=== PATIENT | female | born 1970 | race Caucasian/White ===

== ENCOUNTER 2016-08-16 19:48 | Emergency (ER) | payer BC, OTHER ==
[~2016-08-16 19:48] MED LIST: COGE1INJ IM; COLA100C3 PO; ERGO1CAP10 PO; ERYT1SUS5 PO; LITH300C2 PO; LITH600C PO; OXYC1TAB63 PO; PANT40TA3 PO; PRAZ1CAP PO; PRAZ5CAP PO; PROM1SUP7 RECTAL; TRAM50TA PO; VIST50CA PO; ZOFR4TAB PO; ZYPR20TA PO
[2016-08-16 21:05] LABS: BLOOD, URINE NEG (NEG); COMMENT (UR) CULT NOT INDICATED; CULTURE IF INDICATED CULT NOT INDICATED; GLUCOSE,URINE NEG (NEG); KETONE, URINE NEG (NEG); NITRITE,URINE NEG (NEG); SQUAMOUS EPITHELIAL CELL URINE <1 /hpf (0-5); URINE COLOR COLORLESS (YELLW/STRAW)
[2016-08-16 21:09] LABS: AMPHETAMINE, URINE NEG (NEG); BARBITURATES, URINE NEG (NEG); COCAINE, URINE NEG (NEG)
[2016-08-16] MEDS ORDERED: LORazepam 1 MG TAB PO ONE (21:30)
[2016-08-16] MEDS ORDERED: SERTRALINE HCL 100 MG TAB PO ONE (21:30)
[2016-08-16] MEDS ORDERED: QUEtiapine FUMARATE 100 MG TAB PO ONE (21:30)
[2016-08-16] MEDS ORDERED: PRAZ2CAP PO (21:38)
[2016-08-16] MEDS ORDERED: AMBI10TA PO (21:38)
[2016-08-16] MEDS ORDERED: LORA1TAB12 PO (21:38)
[2016-08-16] MEDS ORDERED: ZOLO100T PO (21:38)
[2016-08-16] MEDS ORDERED: SERO100T PO (21:38)
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
[2016-08-16] MEDS ORDERED: PRAZOSIN HCL 2 MG CAP PO ONE (21:45)
[2016-08-16 21:46] LABS: AUTOMATED NEUTROPHIL # 3.4 TH/MM3 (1.8-7.7); BASOPHIL # 0.1 TH/MM3 (0-0.2); BASOPHIL % 0.6 % (0.0-2.0); EOSINOPHIL # 0.2 TH/MM3 (0-0.4); EOSINOPHIL % 2.5 % (0.0-4.0); HEMO FLAGS DIFF FINAL; LYMPH % 53.1 % (9.0-44.0); LYMPHOCYTE # 4.8 TH/MM3 (1.0-4.8); MEAN CELL VOLUME 88.6 FL (80.0-100.0); MEAN CORPUSCULAR HEMOGLOBIN 29.8 PG (27.0-34.0); MEAN CORPUSCULAR HGB CONC 33.6 % (32.0-36.0); MONO % 6.3 % (0.0-8.0); NEUT % 37.5 % (16.0-70.0); PLATELET COUNT 263 TH/MM3 (150-450); RED BLOOD COUNT 4.63 MIL/MM3 (4.00-5.30); RED CELL DISTRIBUTION WIDTH 16.4 % (11.6-17.2); WHITE BLOOD COUNT 9.1 TH/MM3 (4.0-11.0)
[2016-08-16 22:03] LABS: ANION GAP 12 MEQ/L (5-15)
[2016-08-16 22:07] LABS: ALKALINE PHOSPHATASE 55 U/L (45-117); ALT (GPT) 17 U/L (10-53); AST (GOT) 13 U/L (15-37); BICARBONATE 20.4 MEQ/L (21.0-32.0); BLOOD UREA NITROGEN 8 MG/DL (7-18); CHLORIDE 108 MEQ/L (98-107); GLOMERULAR FILTRATION RATE 75 ML/MIN (>89); POTASSIUM 3.9 MEQ/L (3.5-5.1); SODIUM (NA) 140 MEQ/L (136-145); TOTAL BILIRUBIN ADULT 0.6 MG/DL (0.2-1.0)
[2016-08-16 22:11] LABS: ACETAMINOPHEN LESS THAN 2.0 MCG/ML (10.0-30.0)
[2016-08-16 22:17] VITALS: BP 121/55; PULSE 94; RESP 18; O2SAT 99
[2016-08-17 02:24] VITALS: BP 101/51; PULSE 116; RESP 18; O2SAT 96
[2016-08-17 06:43] VITALS: BP 101/54; PULSE 106; RESP 18; O2SAT 96
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
== END 2016-08-17 09:55 | disposition home or self-care (01) ==
LOC: NEDAMB 19:48 → NEPJ 08-17 09:55
DX: F32.9 Major depressive disorder, single episode, unspecified (principal); F10.129 Alcohol abuse with intoxication, unspecified; F43.10 Post-traumatic stress disorder, unspecified; F41.9 Anxiety disorder, unspecified; J44.9 Chronic obstructive pulmonary disease, unspecified; K21.9 Gastro-esophageal reflux disease without esophagitis
CPT/HCPCS: 80053; 80307; 81001; 84703; 85025; 99283

== ENCOUNTER 2016-09-10 20:16 | Emergency (ER) | payer BC, OTHER ==
[~2016-09-10] VITALS: Ht 162.6 cm; Wt 68.2 kg
[~2016-09-10 20:16] MED LIST changes: +AMBI10TA PO; -COGE1INJ IM; -COLA100C3 PO; -ERGO1CAP10 PO; -LITH300C2 PO; -LITH600C PO; +LORA1TAB12 PO; -OXYC1TAB63 PO; -PRAZ1CAP PO; +PRAZ2CAP PO; -PRAZ5CAP PO; -PROM1SUP7 RECTAL; +SERO100T PO; -TRAM50TA PO; -VIST50CA PO; -ZOFR4TAB PO; +ZOLO100T PO; -ZYPR20TA PO
[2016-09-10 21:37] VITALS: BP 126/76; PULSE 120; RESP 20; TEMP 98.8
[2016-09-10] MEDS ORDERED: LIDOCAINE 1%/EPINEPHrine 1:100,000 SOLN 20 ML VIAL INFIL ONE (21:45)
--- NOTE | 2016-09-10 21:49 | PD ---
HPI . Suicidal ideation Chief Complaint: Psychiatric Symptoms Time Seen by Provider: 21:34 Travel History International Travel<30 days: No Contact w/Intl Traveler<30days: No Traveled to known affect area: No History of Present Illness HPI Patient presents to us under the Naylor Act Geraldine suicide attempt. She slashed both wrists. She states that it just been a bad day. She is unwilling to further elaborate. PFSH Past Medical History Hx Anticoagulant Therapy: No Arthritis: Yes Asthma: No Blood Disorders: No Anxiety: Yes Depression: Yes Heart Rhythm Problems: No Cancer: No Cardiovascular Problems: Yes High Cholesterol: No Chemotherapy: No Chest Pain: Yes Congestive Heart Failure: No COPD: Yes Cerebrovascular Accident: No Diabetes: No Diminished Hearing: No Endocrine: No Gastrointestinal Disorders: Yes (GASTROPARESIS) GERD: Yes Genitourinary: No Headaches: Yes Hypertension: No Immune Disorder: No Implanted Vascular Access Dvce: No Kidney Stones: No Musculoskeletal: Yes (chronic back/last sx jan 2015) Neurologic: Yes Psychiatric: Yes (PTSD, NIGHT TERRORS) Reproductive: Yes Respiratory: Yes (COPD) Radiation Therapy: No Renal Failure: No Seizures: No Sleep Apnea: No Thyroid Disease: No PNEUMOCCOCAL Vaccine (Year): 2 : 1 Para: 1 Past Surgical History Abdominal Surgery: Yes (BOWEL REPAIR) Cardiac Surgery: No Ear Surgery: No Endocrine Surgery: No Eye Surgery: Yes (LASIK) Genitourinary Surgery: No Gynecologic Surgery: Yes (ENDOMETRIAL ABLATION) Hysterectomy: No Neurologic Surgery: Yes (lumbar surgery done august 2011) Oral Surgery: No Pacemaker: No Thoracic Surgery: No Other Surgery: Yes Social History Alcohol Use: Yes (PT STATES SHE DRANK TODAY) Tobacco Use: Yes (1 PACK WEEKLY) Substance Use: Yes (MARIJUANA, ALCOHOL) Allergies-Medications (Allergen,Severity, Reaction): Coded Allergies: Aspirin (Verified Allergy, Severe, "SWELLED UP", 09/10/16) Reported Meds & Prescriptions Reported Meds & Active Scripts Active Pantoprazole (Pantoprazole Sodium) 40 Mg Tab 40 Mg PO BID Erythromycin Ethylsuccinate Liq (Erythromycin Ethylsuccinate) 200 Mg/Ml Susp 200 Mg PO BID Reported Lorazepam 1 Mg Tab 1 Mg PO BID PRN Seroquel (Quetiapine Fumarate) 100 Mg Tab 100 Mg PO HS Ambien (Zolpidem Tartrate) 10 Mg Tab 10 Mg PO HS PRN Zoloft (Sertraline HCl) 100 Mg Tab 100 Mg PO HS Prazosin (Prazosin HCl) 2 Mg Cap 2 Mg PO BID Review of Systems ROS Limitations: Refused Physical Exam Narrative GENERAL: Awake and alert and in no acute distress. SKIN: Warm and dry. She has vertical lacerations to both wrists about 3 cm long. HEAD: Atraumatic. Normocephalic. EYES: Pupils equal and round. NECK: Trachea midline. CARDIOVASCULAR: Regular rate and rhythm. RESPIRATORY: No accessory muscle use. MUSCULOSKELETAL: No obvious deformities. No edema. NEUROLOGICAL: Awake and alert. No obvious cranial nerve deficits. Motor grossly within normal limits. Normal speech. PSYCHIATRIC: Depressed mood. Poor judgment. Data Data Last Documented VS Vital Signs Date Time Temp Pulse Resp B/P Pulse Ox O2 Delivery O2 Flow Rate FiO2 09/10/16 23:06 102 17 126/63 17 Room Air 09/10/16 21:37 98.8 Orders Complete Blood Count With Diff (09/10/16 21:35) Comprehensive Metabolic Panel (09/10/16 21:35) Psych Screen (09/10/16 21:35) Drug Screen, Random Urine (09/10/16 21:35) Alcohol (Ethanol) (09/10/16 21:35) Lidocai-Epi 1%-1:100,000 Inj (Xylocaine- (09/10/16 21:45) Labs Laboratory Tests Test 09/10/16 22:41 White Blood Count 8.5 TH/MM3 Red Blood Count 4.51 MIL/MM3 Hemoglobin 13.7 GM/DL Hematocrit 40.5 % Mean Corpuscular Volume 89.7 FL Mean Corpuscular Hemoglobin 30.3 PG Mean Corpuscular Hemoglobin 33.8 % Concent Red Cell Distribution Width 15.1 % Platelet Count 274 TH/MM3 Mean Platelet Volume 7.3 FL Neutrophils (%) (Auto) 54.7 % Lymphocytes (%) (Auto) 36.9 % Monocytes (%) (Auto) 5.7 % Eosinophils (%) (Auto) 1.9 % Basophils (%) (Auto) 0.8 % Neutrophils # (Auto) 4.6 TH/MM3 Lymphocytes # (Auto) 3.1 TH/MM3 Monocytes # (Auto) 0.5 TH/MM3 Eosinophils # (Auto) 0.2 TH/MM3 Basophils # (Auto) 0.1 TH/MM3 CBC Comment DIFF FINAL Differential Comment Sodium Level 141 MEQ/L Potassium Level 3.9 MEQ/L Chloride Level 110 MEQ/L Carbon Dioxide Level 20.8 MEQ/L Anion Gap 10 MEQ/L Blood Urea Nitrogen 12 MG/DL Creatinine 0.81 MG/DL Estimat Glomerular Filtration 76 ML/MIN Rate Random Glucose 72 MG/DL Calcium Level 8.2 MG/DL Total Bilirubin 0.4 MG/DL Aspartate Amino Transf 22 U/L (AST/SGOT) Alanine Aminotransferase 16 U/L (ALT/SGPT) Alkaline Phosphatase 49 U/L Total Protein 7.3 GM/DL Albumin 3.9 GM/DL Ethyl Alcohol Level 68 MG/DL [facility] Medical Decision Making Medical Screen Exam Complete: Yes Emergency Medical Condition: Yes Differential Diagnosis Differential diagnosis includes but is not limited to depression with suicidal gesture, suicide attempt, suicidal ideation, attention seeking behavior. Narrative Course Patient presents under the Naylor Act states suicide attempt by cutting her wrists. Lacerations were repaired. Diagnosis Primary Impression: Suicidal ideation Additional Impressions: Laceration of wrist, left Qualified Code: S61.512A - Laceration of wrist, left, initial encounter Laceration of wrist, right Qualified Code: S61.511A - Laceration of wrist, right, initial encounter Condition: Stable Citlalli Seay MD September 10, 2016 21:49
--- NOTE | 2016-09-10 22:25 | PD ---
Physical Exam Date Seen by Provider: September 10, 2016 Time Seen by Provider: 22:22 Narrative For full history and physical examination please see previous provider's note. I was asked to repair the lacerations to patient's wrists. Data Data Last Documented VS Vital Signs Date Time Temp Pulse Resp B/P Pulse Ox O2 Delivery O2 Flow Rate FiO2 09/10/16 21:37 98.8 120 20 126/76 Orders Complete Blood Count With Diff (09/10/16 21:35) Comprehensive Metabolic Panel (09/10/16 21:35) Psych Screen (09/10/16 21:35) Drug Screen, Random Urine (09/10/16 21:35) Alcohol (Ethanol) (09/10/16 21:35) Lidocai-Epi 1%-1:100,000 Inj (Xylocaine- (09/10/16 21:45) MDM Supervised Visit with ANGELICA: Yes Procedures Procedure Narrative LACERATION LOCATION: Left wrist LENGTH: 2 cm NUMBER OF STITCHES/KOBY: 6 stitches REPAIR: The area of the laceration was prepped with Betadine and sterilely draped. The laceration was infiltrated with Percent lidocaine with epi. The wound was copiously irrigated and explored without evidence of foreign body, tendon injury or neurovascular injury. The wound was closed using 4-0 Prolene. This was a 1 layer repair. A sterile dressing was applied. The patient was advised to keep the dressing clean and dry. Patient tolerated the procedure well. LACERATION LOCATION: Right wrist LENGTH: 2 cm NUMBER OF STITCHES/KOBY: 6 stitches REPAIR: The area of the laceration was prepped with Betadine and sterilely draped. The laceration was infiltrated with 1% lidocaine with epi. The wound was copiously irrigated and explored without evidence of foreign body, tendon injury or neurovascular injury. The wound was closed using 4-0 Prolene. This was a 1 layer repair. A sterile dressing was applied. The patient was advised to keep the dressing clean and dry. Patient tolerated the procedure well. Diagnosis Primary Impression: Suicidal ideation Additional Impressions: Laceration of wrist, left Qualified Code: S61.512A - Laceration of wrist, left, initial encounter Laceration of wrist, right Qualified Code: S61.511A - Laceration of wrist, right, initial encounter Condition: Stable Cindy Chin G[employer] SCREENER September 10, 2016 22:25
[2016-09-10 22:55] LABS: AUTOMATED NEUTROPHIL # 4.6 TH/MM3 (1.8-7.7); BASOPHIL # 0.1 TH/MM3 (0-0.2); BASOPHIL % 0.8 % (0.0-2.0); EOSINOPHIL # 0.2 TH/MM3 (0-0.4); EOSINOPHIL % 1.9 % (0.0-4.0); HEMATOCRIT 40.5 % (35.0-46.0); HEMO FLAGS DIFF FINAL; LYMPH % 36.9 % (9.0-44.0); LYMPHOCYTE # 3.1 TH/MM3 (1.0-4.8); MEAN CELL VOLUME 89.7 FL (80.0-100.0); MEAN CORPUSCULAR HEMOGLOBIN 30.3 PG (27.0-34.0); MEAN CORPUSCULAR HGB CONC 33.8 % (32.0-36.0); MONO % 5.7 % (0.0-8.0); NEUT % 54.7 % (16.0-70.0); PLATELET COUNT 274 TH/MM3 (150-450); RED BLOOD COUNT 4.51 MIL/MM3 (4.00-5.30); RED CELL DISTRIBUTION WIDTH 15.1 % (11.6-17.2); WHITE BLOOD COUNT 8.5 TH/MM3 (4.0-11.0)
[2016-09-10 23:06] VITALS: BP 126/63; PULSE 102; RESP 17; O2SAT 17
[2016-09-10 23:06] LABS: ALKALINE PHOSPHATASE 49 U/L (45-117); TOTAL BILIRUBIN ADULT 0.4 MG/DL (0.2-1.0)
[2016-09-10 23:07] LABS: ALT (GPT) 16 U/L (10-53); ANION GAP 10 MEQ/L (5-15); AST (GOT) 22 U/L (15-37); BICARBONATE 20.8 MEQ/L (21.0-32.0); BLOOD UREA NITROGEN 12 MG/DL (7-18); CHLORIDE 110 MEQ/L (98-107); GLOMERULAR FILTRATION RATE 76 ML/MIN (>89); POTASSIUM 3.9 MEQ/L (3.5-5.1); SODIUM (NA) 141 MEQ/L (136-145)
[2016-09-10 23:28] LABS: AMPHETAMINE, URINE NEG (NEG); BARBITURATES, URINE NEG (NEG); COCAINE, URINE NEG (NEG)
[2016-09-11] VITALS (7 sets, daily range): BP systolic 99–149; BP diastolic 54–87; PULSE 70–94; RESP 16–19; TEMP 98; O2SAT 95–99
[2016-09-11] MEDS ORDERED: FLUMAZENIL 0.5 MG/5 ML VIAL IV PUSH PRN (15:00)
[2016-09-11] MEDS ORDERED: LORazepam 2 MG TAB PO PRN (15:00)
[2016-09-11] MEDS ORDERED: LORazepam 2 MG/ML VIAL IV PUSH PRN ×4 (15:00)
[2016-09-11] MEDS ORDERED: LORazepam 1 MG TAB PO PRN (15:00)
[2016-09-11] MEDS: ERYTHROMYCIN ETHYLSUCCINATE 200 MG/5 ML SUSP 100 ML BOTTLE PO SCH (16:00)
[2016-09-11] MEDS: PANTOPRAZOLE SOD 40 MG DELAYED RELEASE TAB PO SCH (16:00)
[2016-09-11] MEDS ORDERED: SERTRALINE HCL 100 MG TAB PO SCH (21:00)
[2016-09-11] MEDS ORDERED: PRAZOSIN HCL 2 MG CAP PO SCH (21:00)
[2016-09-11] MEDS ORDERED: QUEtiapine FUMARATE 100 MG TAB PO SCH (21:00)
[2016-09-12 02:07] VITALS: BP 111/58; PULSE 85; RESP 18; O2SAT 99
[2016-09-12] MEDS: ERYTHROMYCIN ETHYLSUCCINATE 200 MG/5 ML SUSP 100 ML BOTTLE PO SCH (04:00)
[2016-09-12] MEDS: PANTOPRAZOLE SOD 40 MG DELAYED RELEASE TAB PO SCH (04:00)
[2016-09-12 06:00] VITALS: BP 108/55; PULSE 77; RESP 19; O2SAT 98
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
[2016-09-12 10:26] VITALS: BP 149/80; PULSE 73; RESP 20; TEMP 97.5; O2SAT 98
== END 2016-09-12 09:45 | disposition home or self-care (01) ==
LOC: NEPD 20:16 → NEPJ 09-12 09:45
DX: S61.512A Laceration without foreign body of left wrist, initial encounter (principal); S61.511A Laceration without foreign body of right wrist, initial encounter; F41.8 Other specified anxiety disorders; F43.10 Post-traumatic stress disorder, unspecified; F51.4 Sleep terrors [night terrors]; X78.9XXA Intentional self-harm by unspecified sharp object, initial encounter; Z72.0 Tobacco use; F12.90 Cannabis use, unspecified, uncomplicated; F60.9 Personality disorder, unspecified
CPT/HCPCS: 12002; 80053; 80307; 85025

== ENCOUNTER 2016-11-13 11:20 | Emergency (ER) | payer BC, OTHER ==
[~2016-11-13] VITALS: Ht 165.1 cm; Wt 70.0 kg
[2016-11-13 11:22] VITALS: BP 134/73; PULSE 90; RESP 20; TEMP 98.1; O2SAT 100
[2016-11-13 12:11] LABS: AUTOMATED NEUTROPHIL # 4.7 TH/MM3 (1.8-7.7); BASOPHIL # 0.1 TH/MM3 (0-0.2); BASOPHIL % 1.1 % (0.0-2.0); EOSINOPHIL # 0.1 TH/MM3 (0-0.4); EOSINOPHIL % 1.3 % (0.0-4.0); HEMATOCRIT 41.2 % (35.0-46.0); HEMO FLAGS DIFF FINAL; LYMPH % 41.7 % (9.0-44.0); LYMPHOCYTE # 3.9 TH/MM3 (1.0-4.8); MEAN CELL VOLUME 93.2 FL (80.0-100.0); MEAN CORPUSCULAR HEMOGLOBIN 31.8 PG (27.0-34.0); MEAN CORPUSCULAR HGB CONC 34.1 % (32.0-36.0); MONO % 6.6 % (0.0-8.0); NEUT % 49.3 % (16.0-70.0); PLATELET COUNT 264 TH/MM3 (150-450); RED BLOOD COUNT 4.42 MIL/MM3 (4.00-5.30); RED CELL DISTRIBUTION WIDTH 12.9 % (11.6-17.2); WHITE BLOOD COUNT 9.5 TH/MM3 (4.0-11.0)
[2016-11-13] MEDS ORDERED: ABIL2TAB2 PO (12:13)
[2016-11-13] MEDS ORDERED: PROM1SUP7 RECTAL (12:13)
[2016-11-13] MEDS ORDERED: TRIL150T PO (12:13)
[2016-11-13] MEDS ORDERED: REME30TA PO (12:13)
[2016-11-13] MEDS ORDERED: ZOFR8TAB PO (12:13)
--- NOTE | 2016-11-13 12:13 | PD ---
HPI Chief Complaint: Respiratory Symptoms Time Seen by Provider: 12:03 Travel History International Travel<30 days: No Contact w/Intl Traveler<30days: No Traveled to known affect area: No History of Present Illness HPI 45 years old female complains of right-sided upper chest pain. Patient states that the pain started about 36 hours ago. Patient states that pain is burning sharp pain localized to right upper chest. Patient denies any pain radiation. Patient states that the pain is worse with deep breathing. Patient states that she has dry cough for the past 2 days. Patient denies any fever chills. Patient denies any nausea vomiting diarrhea. PFSH Past Medical History Hx Anticoagulant Therapy: No Arthritis: Yes Asthma: No Blood Disorders: No Anxiety: Yes Depression: Yes Heart Rhythm Problems: No Cancer: No Cardiovascular Problems: Yes High Cholesterol: No Chemotherapy: No Chest Pain: Yes Congestive Heart Failure: No COPD: Yes Cerebrovascular Accident: No Diabetes: No Diminished Hearing: No Endocrine: No Gastrointestinal Disorders: Yes (GASTROPARESIS) GERD: Yes Genitourinary: No Headaches: Yes Hypertension: No Immune Disorder: No Implanted Vascular Access Dvce: No Kidney Stones: No Medical other: Yes (GERD) Musculoskeletal: Yes (chronic back/last sx jan 2015) Neurologic: Yes Psychiatric: Yes (PTSD, NIGHT TERRORS) Reproductive: Yes Respiratory: Yes (COPD) Radiation Therapy: No Renal Failure: No Seizures: No Sleep Apnea: No Thyroid Disease: No PNEUMOCCOCAL Vaccine (Year): 2 ?: Not : 1 Para: 1 Past Surgical History Abdominal Surgery: Yes (BOWEL REPAIR) Cardiac Surgery: No Ear Surgery: No Endocrine Surgery: No Eye Surgery: Yes (LASIK) Genitourinary Surgery: No Gynecologic Surgery: Yes (ENDOMETRIAL ABLATION) Hysterectomy: No Neurologic Surgery: Yes (lumbar surgery done august 2011) Oral Surgery: No Pacemaker: No Thoracic Surgery: No Other Surgery: Yes Family History Family Myocardial Infarction: Yes Social History Alcohol Use: Yes Tobacco Use: Yes (1 PACK WEEKLY) Substance Use: Yes Allergies-Medications (Allergen,Severity, Reaction): Coded Allergies: Aspirin (Verified Allergy, Severe, "SWELLED UP", 11/13/16) Reported Meds & Prescriptions Reported Meds & Active Scripts Active Pantoprazole (Pantoprazole Sodium) 40 Mg Tab 40 Mg PO BID Erythromycin Ethylsuccinate Liq (Erythromycin Ethylsuccinate) 200 Mg/Ml Susp 200 Mg PO BID Reported Phenergan Supp (Promethazine HCl) 25 Mg Supp 25 Mg RECTAL Q6H PRN Zofran (Ondansetron HCl) 8 Mg Tab 8 Mg PO TID PRN Abilify (Aripiprazole) 2 Mg Tab 2 Mg PO HS Remeron (Mirtazapine) 30 Mg Tab 30 Mg PO HS Trileptal (Oxcarbazepine) 150 Mg Tab 150 Mg PO BID Zoloft (Sertraline HCl) 100 Mg Tab 150 Mg PO DAILY Review of Systems General / Constitutional: No: Fever Eyes: No: Visual changes HENT: No: Headaches Cardiovascular: Positive: Chest Pain or Discomfort Respiratory: No: Shortness of Breath Gastrointestinal: No: Abdominal Pain Genitourinary: No: Dysuria Musculoskeletal: No: Pain Skin: No Rash Neurologic: No: Weakness Psychiatric: No: Depression Endocrine: No: Polydipsia Hematologic/Lymphatic: No: Easy Bruising Physical Exam Narrative GENERAL: Well-nourished, well-developed patient. SKIN: Focused skin assessment warm/dry. HEAD: Normocephalic. EYES: No scleral icterus. No injection or drainage. NECK: Supple, trachea midline. No JVD or lymphadenopathy. CARDIOVASCULAR: Regular rate and rhythm without murmurs, gallops, or rubs. RESPIRATORY: Breath sounds equal bilaterally. No accessory muscle use. GASTROINTESTINAL: Abdomen soft, non-tender, nondistended. MUSCULOSKELETAL: No cyanosis, or edema. BACK: Nontender without obvious deformity. No CVA tenderness. Neurologic exam normal. Data Data Last Documented VS Vital Signs Date Time Temp Pulse Resp B/P Pulse Ox O2 Delivery O2 Flow Rate FiO2 11/13/16 11:22 98.1 90 20 134/73 100 Room Air Orders Electrocardiogram (11/13/16 11:25) Complete Blood Count With Diff (11/13/16 11:25) Basic Metabolic Panel (Bmp) (11/13/16 11:25) Ckmb (Isoenzyme) Profile (11/13/16 11:25) Troponin I (11/13/16 11:25) Chest, Pa & Lat (11/13/16 11:25) Acetamin-Hydrocod 325-5 Mg ([place] 5-325 (11/13/16 13:00) Labs Laboratory Tests Test 11/13/16 11:58 White Blood Count 9.5 TH/MM3 Red Blood Count 4.42 MIL/MM3 Hemoglobin 14.1 GM/DL Hematocrit 41.2 % Mean Corpuscular Volume 93.2 FL Mean Corpuscular Hemoglobin 31.8 PG Mean Corpuscular Hemoglobin 34.1 % Concent Red Cell Distribution Width 12.9 % Platelet Count 264 TH/MM3 Mean Platelet Volume 7.2 FL Neutrophils (%) (Auto) 49.3 % Lymphocytes (%) (Auto) 41.7 % Monocytes (%) (Auto) 6.6 % Eosinophils (%) (Auto) 1.3 % Basophils (%) (Auto) 1.1 % Neutrophils # (Auto) 4.7 TH/MM3 Lymphocytes # (Auto) 3.9 TH/MM3 Monocytes # (Auto) 0.6 TH/MM3 Eosinophils # (Auto) 0.1 TH/MM3 Basophils # (Auto) 0.1 TH/MM3 CBC Comment DIFF FINAL Differential Comment Sodium Level 136 MEQ/L Potassium Level 3.7 MEQ/L Chloride Level 107 MEQ/L Carbon Dioxide Level 23.5 MEQ/L Anion Gap 6 MEQ/L Blood Urea Nitrogen 9 MG/DL Creatinine 0.76 MG/DL Estimat Glomerular Filtration 82 ML/MIN Rate Random Glucose 92 MG/DL Calcium Level 8.7 MG/DL Total Creatine Kinase 77 U/L Troponin I LESS THAN 0.02 NG/ML MDM Medical Decision Making Medical Screen Exam Complete: Yes Emergency Medical Condition: Yes Interpretation(s) Last Impressions Chest X-Ray 11/13/16 1125 Signed Impressions: Service Date/Time: Sunday, November 13, 2016 11:43 - CONCLUSION: No acute disease. Akil Gao MD 12:53 PM. CBC within normal limit. BMP within normal limit. 1306 p.m. Cardiac enzymes are normal. Differential Diagnosis Differential diagnosis including pleurisy, pneumothorax, pneumonia, MO. Narrative Course 45 years old female with right upper chest pain. The pain is sharp pain worse with deep inspiration. Diagnosis Primary Impression: Pleurisy Patient Instructions: General Instructions Additional Instructions: Take medication as needed for pain. Follow-up with personal physician. Return if worse. Med/Other Pt SpecificInfo: Prescription(s) given Scripts Hydrocodone-Acetaminophen ([place])5-325 mg Tab1 Tab PO Q6H PRN (PAIN) #20 TAB Prov:Phan Martinez MD 11/13/16 Disposition: 01 DISCHARGE HOME Condition: Stable Phan Martinez MD Nov 13, 2016 12:13
--- NOTE | 2016-11-13 12:20 | RADRPT ---
EXAM DATE/TIME: 11/13/2016 11:43 [facility] COMPARISON: CHEST PA & LAT, December 06, 2014, 16:30. INDICATIONS : Chest pain. MEDICAL HISTORY : None. SURGICAL HISTORY : None. ENCOUNTER: Initial ACUITY: 1 day PAIN SCORE: 9/10 LOCATION: Right chest upper lung FINDINGS: PA and lateral views of the chest demonstrate the lungs to be symmetrically aerated without evidence of mass, infiltrate or effusion. The cardiomediastinal contours are unremarkable. Osseous structure s are intact. CONCLUSION: No acute disease. Akil Gao MD on November 13, 2016 at 12:18 Board Certified Radiologist. This report was verified electronically.
[2016-11-13 12:46] LABS: ANION GAP 6 MEQ/L (5-15); BICARBONATE 23.5 MEQ/L (21.0-32.0); BLOOD UREA NITROGEN 9 MG/DL (7-18); CHLORIDE 107 MEQ/L (98-107); GLOMERULAR FILTRATION RATE 82 ML/MIN (>89); POTASSIUM 3.7 MEQ/L (3.5-5.1); SODIUM (NA) 136 MEQ/L (136-145)
[2016-11-13 12:55] LABS: CREATINE KINASE 77 U/L (26-192)
[2016-11-13] MEDS ORDERED: ACETAMINOPHEN/HYDROcodone 325 MG/5 MG TAB PO ONE (13:00)
[2016-11-13] MEDS ORDERED: NORC5TAB PO (13:08)
--- NOTE | 2016-11-14 19:10 | EKG ---
Date Performed: 11/13/2016 Time Performed: 11:40:29 PTAGE: 45 years EKG: Sinus rhythm WITH OCCASIONAL SUPRAVENTRICULAR PREMATURE COMPLEXES POSSIBLE RIGHT VENTRICULAR CONDUCTION DELAY BOR DERLINE ECG PREVIOUS TRACING : 02/13/2016 06.53 Compared to prior tracing no significant change DOCTOR: Charisma Resendiz Interpretating Date/Time 11/14/2016 19:07:56
[2016-11-20] MEDS ORDERED: SONA10CA5 PO (16:41)
[2016-11-20] MEDS ORDERED: AMIT100T2 PO (16:41)
== END 2016-11-13 13:17 | disposition home or self-care (01) ==
LOC: NEPC 11:20
DX: R09.1 Pleurisy (principal); R05 Cough; M13.88 Other specified arthritis, other site; J44.9 Chronic obstructive pulmonary disease, unspecified; K21.9 Gastro-esophageal reflux disease without esophagitis; F43.10 Post-traumatic stress disorder, unspecified; Z79.899 Other long term (current) drug therapy; Z88.6 Allergy status to analgesic agent
CPT/HCPCS: 71020; 80048; 82550; 84484; 85025; 93005

== ENCOUNTER 2017-06-02 10:18 | Emergency (ER) | payer BC, OTHER ==
[~2017-06-02] VITALS: Ht 162.6 cm; Wt 70.0 kg
[~2017-06-02 10:18] MED LIST changes: +ALBU0.08 NEB; -AMBI10TA PO; +BENZ100 PO; -ERYT1SUS5 PO; +GUAISYP4 PO; +HYDR-3516 PO; +LEVA750T9 PO; -LORA1TAB12 PO; +MEDR4PAK PO; +NEBULIZER1 MI1; -PRAZ2CAP PO; +PRED20 PO; +PROM1SUP7 RECTAL; -SERO100T PO; +TRIL150T PO; +UMEC1AER INH; +VENTAER INH; +ZOFR8TAB PO; +ZOLP10TA3 PO
[2017-06-02 10:20] VITALS: BP 133/63; PULSE 102; RESP 18; TEMP 97.8; O2SAT 100
[2017-06-02 11:42] VITALS: BP 110/55; PULSE 80; RESP 16; O2SAT 100
[2017-06-02 11:46] LABS: AUTOMATED NEUTROPHIL # 4.6 TH/MM3 (1.8-7.7); BASOPHIL # 0.1 TH/MM3 (0-0.2); BASOPHIL % 0.8 % (0.0-2.0); EOSINOPHIL # 0.2 TH/MM3 (0-0.4); EOSINOPHIL % 1.9 % (0.0-4.0); HEMATOCRIT 39.5 % (35.0-46.0); HEMOGLOBIN 13.8 GM/DL (11.6-15.3); LYMPH % 42.4 % (9.0-44.0); LYMPHOCYTE # 4.1 TH/MM3 (1.0-4.8); MEAN CELL VOLUME 91.7 FL (80.0-100.0); MEAN CORPUSCULAR HEMOGLOBIN 31.9 PG (27.0-34.0); MEAN CORPUSCULAR HGB CONC 34.8 % (32.0-36.0); MEAN PLATELET VOLUME 7.1 FL (7.0-11.0); MONO % 6.9 % (0.0-8.0); MONOCYTE # 0.7 TH/MM3 (0-0.9); PLATELET COUNT 308 TH/MM3 (150-450); RED BLOOD COUNT 4.31 MIL/MM3 (4.00-5.30); WHITE BLOOD COUNT 9.7 TH/MM3 (4.0-11.0)
[2017-06-02 11:55] LABS: BILIRUBIN, URINE NEG (NEG); BLOOD, URINE TRACE (NEG); GLUCOSE,URINE NEG (NEG); KETONE, URINE NEG (NEG); MUCUS URINE FEW /lpf (OCC); NITRITE,URINE NEG (NEG); SQUAMOUS EPITHELIAL CELL URINE 1 /hpf (0-5); URINE COLOR YELLOW (YELLW/STRAW); URINE LEUKOCYTE ESTERASE NEG (NEG)
[2017-06-02 12:03] LABS: ALT (GPT) 13 U/L (10-53); AST (GOT) 14 U/L (15-37); BICARBONATE 21.8 MEQ/L (21.0-32.0); BLOOD UREA NITROGEN 11 MG/DL (7-18); CALCIUM 8.7 MG/DL (8.5-10.1); CHLORIDE 107 MEQ/L (98-107); CREATININE 0.73 MG/DL (0.50-1.00); GLOMERULAR FILTRATION RATE 85 ML/MIN (>89); GLUCOSE,RANDOM 79 MG/DL (74-106); SODIUM (NA) 136 MEQ/L (136-145)
[2017-06-02 12:06] LABS: ALKALINE PHOSPHATASE 52 U/L (45-117); TOTAL BILIRUBIN ADULT 0.4 MG/DL (0.2-1.0); TOTAL PROTEIN 7.5 GM/DL (6.4-8.2)
[2017-06-02] MEDS ORDERED: CYMB60CA PO (12:18)
[2017-06-02] MEDS ORDERED: ERYT1SUS5 PO (12:18)
--- NOTE | 2017-06-02 12:18 | PD ---
HPI Chief Complaint: GI Complaint Time Seen by Provider: 11:18 Travel History International Travel<30 days: No Contact w/Intl Traveler<30days: No Traveled to known affect area: No History of Present Illness HPI This is a 46 year old female who has a history of gastroparesis who presents to the emergency department with 3 weeks of abdominal pain, intermittent but constant over the last 4 days, severe, associated with vomiting 4 times per day. Pt. reports the pain is sharp, worse with movement and coughing. Pt. had some relief with tylenol but since has worsened. Pt. does have a history of gastric perforation and 2 hernia repairs in the past. PFSH Past Medical History Hx Anticoagulant Therapy: No Arthritis: Yes Asthma: No Blood Disorders: No Anxiety: Yes Depression: Yes Heart Rhythm Problems: No Cancer: No Cardiovascular Problems: Yes High Cholesterol: No Chemotherapy: No Chest Pain: Yes Congestive Heart Failure: No COPD: Yes Cerebrovascular Accident: No Diabetes: No Diminished Hearing: No Endocrine: No Gastrointestinal Disorders: Yes (GASTROPARESIS) GERD: Yes Genitourinary: No Headaches: Yes Hypertension: No Immune Disorder: No Implanted Vascular Access Dvce: No Kidney Stones: No Musculoskeletal: Yes (chronic back/last sx jan 2015) Neurologic: Yes Psychiatric: Yes (PTSD, NIGHT TERRORS) Reproductive: Yes Respiratory: Yes (COPD) Radiation Therapy: No Renal Failure: No Seizures: No Sleep Apnea: No Thyroid Disease: No Influenza Vaccination: No PNEUMOCCOCAL Vaccine (Year): 2 ?: Not LMP: 2007 : 1 Para: 1 Past Surgical History Abdominal Surgery: Yes (BOWEL REPAIR) Cardiac Surgery: No Ear Surgery: No Endocrine Surgery: No Eye Surgery: Yes (LASIK) Genitourinary Surgery: No Gynecologic Surgery: Yes (ENDOMETRIAL ABLATION) Hysterectomy: No Neurologic Surgery: Yes (lumbar surgery done august 2011) Oral Surgery: No Pacemaker: No Thoracic Surgery: No Other Surgery: Yes Family History Family Myocardial Infarction: Yes Social History Alcohol Use: Yes (occ) Tobacco Use: Yes (1 PACK WEEKLY) Substance Use: Yes (HX OF) Allergies-Medications (Allergen,Severity, Reaction): Coded Allergies: aspirin (Verified Allergy, Severe, "SWELLED UP", 06/02/17) NSAIDS (Non-Steroidal Anti-Inflamma (Verified Adverse Reaction, Mild, ) CONTRAINDICATED WITH MEDICAL CONDITION PER PHYSICIAN Reported Meds & Prescriptions Reported Meds & Active Scripts Active Zolpidem (Zolpidem Tartrate) 10 Mg Tab 10 Mg PO HS PRN Zolpidem (Zolpidem Tartrate) 10 Mg Tab 10 Mg PO HS PRN Nebulizer 1 Mis Mis Ea .ROUTE DIRECTED Prednisone 20 Mg Tab 20 Mg PO BID Medrol Dosepak (Methylprednisolone) 4 Mg Dspk 4 Mg PO DIRECTED Per Pharmacist direction Hydrocodone-Acetaminophen 5-325 mg Tab 1 Tab PO Q4H PRN Levaquin (Levofloxacin) 750 Mg Tablet 750 Mg PO DAILY Ventolin Hfa 18 GM Inh (Albuterol Sulfate) 90 Mcg/Act Aer 2 Puff INH Q4-6H PRN Anoro Ellipta Inh (Umeclidinium/Vilanterol) 62.5-25 Mcg/Act Aero 1 Puff INH DAILY Albuterol Neb (Albuterol Sulfate) 2.5 Mg/3 Ml Neb 2.5 Mg NEB Q4HR NEB PRN Guaifenesin AC Liq (Guaifenesin-Codeine Liq) 100-10 Mg/5 Ml Syrp 10 Ml PO HS PRN Tessalon Perles (Benzonatate) 100 Mg Cap 200 Mg PO TID PRN Pantoprazole (Pantoprazole Sodium) 40 Mg Tab 40 Mg PO BID Reported Erythromycin Ethylsuccinate Liq (Erythromycin Ethylsuccinate) 200 Mg/Ml Susp 200 Mg PO Q8H Cymbalta DR (Duloxetine HCl) 60 Mg Capdr 60 Mg PO DAILY Phenergan Supp (Promethazine HCl) 25 Mg Supp 25 Mg RECTAL Q6H PRN Zofran (Ondansetron HCl) 8 Mg Tab 8 Mg PO TID PRN Trileptal (Oxcarbazepine) 150 Mg Tab 150 Mg PO BID Zoloft (Sertraline HCl) 100 Mg Tab 150 Mg PO DAILY Review of Systems Except as stated in HPI: all other systems reviewed are Neg Physical Exam Narrative GENERAL:Well appearing, no acute distress SKIN: Focused skin assessment warm and dry. HEAD: Atraumatic. Normocephalic. EYES: Pupils equal and round. No injection or drainage. ENT: Moist mucous membranes NECK: Trachea midline. CARDIOVASCULAR: Regular rate and rhythm. No murmur appreciated. RESPIRATORY: Clear to auscultation. Breath sounds equal bilaterally. GASTROINTESTINAL: Abdomen soft,tender to palpation in the epigastrium and left upper quadrant with no rebound/guarding. MUSCULOSKELETAL: No obvious deformities. NEUROLOGICAL: Awake and alert. No obvious cranial nerve deficits. Moving all extremities. PSYCHIATRIC: Appropriate mood and affect; insight and judgment normal. Data Data Last Documented VS Vital Signs Date Time Temp Pulse Resp B/P (MAP) Pulse Ox O2 Delivery O2 Flow Rate FiO2 06/02/17 11:42 80 16 110/55 (73) 100 Room Air 06/02/17 10:20 97.8 Orders Orders Complete Blood Count With Diff (06/02/17 10:53) Comprehensive Metabolic Panel (06/02/17 10:53) Urinalysis - C+S If Indicated (06/02/17 10:53) Iv Access Insert/Monitor (06/02/17 10:53) Oxygen Administration (06/02/17 10:53) Oximetry (06/02/17 10:53) Lipase (06/02/17 10:53) Ct Abd/Pel W Iv Contrast(Rout) (06/02/17 ) Hydromorphone Pf Inj (Dilaudid Pf Inj) (06/02/17 12:30) Metoclopramide Inj (Reglan Inj) (06/02/17 12:30) Sodium Chlor 0.9% 1000 Ml Inj (Ns 1000 M (06/02/17 12:30) Hydromorphone Pf Inj (Dilaudid Pf Inj) (06/02/17 14:15) Iohexol 350 Inj (Omnipaque 350 Inj) (06/02/17 14:00) Labs Laboratory Tests Test 06/02/17 11:20 White Blood Count 9.7 TH/MM3 Red Blood Count 4.31 MIL/MM3 Hemoglobin 13.8 GM/DL Hematocrit 39.5 % Mean Corpuscular Volume 91.7 FL Mean Corpuscular Hemoglobin 31.9 PG Mean Corpuscular Hemoglobin Concent 34.8 % Red Cell Distribution Width 13.0 % Platelet Count 308 TH/MM3 Mean Platelet Volume 7.1 FL Neutrophils (%) (Auto) 48.0 % Lymphocytes (%) (Auto) 42.4 % Monocytes (%) (Auto) 6.9 % Eosinophils (%) (Auto) 1.9 % Basophils (%) (Auto) 0.8 % Neutrophils # (Auto) 4.6 TH/MM3 Lymphocytes # (Auto) 4.1 TH/MM3 Monocytes # (Auto) 0.7 TH/MM3 Eosinophils # (Auto) 0.2 TH/MM3 Basophils # (Auto) 0.1 TH/MM3 CBC Comment DIFF FINAL Differential Comment Urine Color YELLOW Urine Turbidity CLEAR Urine pH 5.0 Urine Specific [place] 1.020 Urine Protein NEG mg/dL Urine Glucose (UA) NEG mg/dL Urine Ketones NEG mg/dL Urine Occult Blood TRACE Urine Nitrite NEG Urine Bilirubin NEG Urine Urobilinogen LESS THAN 2.0 MG/DL Urine Leukocyte Esterase NEG Urine RBC 1 /hpf Urine WBC LESS THAN 1 /hpf Urine Squamous Epithelial Cells 1 /hpf Urine Mucus FEW /lpf Microscopic Urinalysis Comment CULT NOT INDICATED Blood Urea Nitrogen 11 MG/DL Creatinine 0.73 MG/DL Random Glucose 79 MG/DL Total Protein 7.5 GM/DL Albumin 4.0 GM/DL Calcium Level 8.7 MG/DL Alkaline Phosphatase 52 U/L Aspartate Amino Transf (AST/SGOT) 14 U/L Alanine Aminotransferase (ALT/SGPT) 13 U/L Total Bilirubin 0.4 MG/DL Sodium Level 136 MEQ/L Potassium Level 3.8 MEQ/L Chloride Level 107 MEQ/L Carbon Dioxide Level 21.8 MEQ/L Anion Gap 7 MEQ/L Estimat Glomerular Filtration Rate 85 ML/MIN Lipase 105 U/L MDM Medical Decision Making Medical Screen Exam Complete: Yes Emergency Medical Condition: Yes Interpretation(s) afebrile, mild tachycardia, normotensive no leukocytosis electrolytes within normal limits urinalysis with infection ct abd/pelvis: no acute process Differential Diagnosis Gastroparesis, gastritis, perforated ulcer, incarcerated hernia, gastric outlet obstruction Narrative Course This is a 46-year-old female who presents to the emergency department with history of gastroparesis with symptoms similar to episodes she has had in the past. Labs are reassuring. CT abdomen pelvis is unremarkable. Patient feels much better after Reglan, pain control and IV fluids. I offered her observation for symptom control but she like to try to manage this at home and will follow up with her primary care physician. Patient will be discharged home. Diagnosis Primary Impression: GASTROPARESIS Patient Instructions: General Instructions Additional Instructions: If you develop severe or worsening abdominal pain, fever>100.4, persistent vomiting or inability to eat or drink return to the emergency department immediately. Follow up with your primary care physician in 1-2 days for a check-up. Med/Other Pt SpecificInfo: Prescription(s) given Scripts Tramadol (Tramadol) 50 Mg Tab 50 MG PO Q6H Y for PAIN, #10 TAB 0 Refills Prov: Meaghan Fajardo MD 06/02/17 Metoclopramide (Reglan) 10 Mg Tab 10 MG PO TIDAC, #15 TAB 0 Refills Prov: Meaghan Fajardo MD 06/02/17 Disposition: 01 DISCHARGE HOME Condition: Stable Meaghan Fajardo MD Jun 02, 2017 12:18
[2017-06-02 12:30] VITALS: BP 110/55; PULSE 80; RESP 16; O2SAT 100
[2017-06-02] MEDS ORDERED: METOCLOPRAMIDE HCL 10 MG/2 ML VIAL IV PUSH ONE (12:30)
[2017-06-02] MEDS ORDERED: SODIUM CHLOR 0.9% 1000 ML INJ 1,000 ML IV ONE (12:30)
[2017-06-02] MEDS ORDERED: HYDROmorphone HCL PF 2 MG/ML VIAL IV PUSH ONE ×2 (12:30→14:15)
[2017-06-02] MEDS ORDERED: IOHEXOL 350 MG/ML 10 ML VIAL (for RAD DIAG) IVCONTRAST ONE (14:00)
--- NOTE | 2017-06-02 15:02 | RADRPT ---
EXAM DATE/TIME: 06/02/2017 13:11 [place] COMPARISON: CT ABDOMEN & PELVIS W CONTRAST, October 27, 2015, 10:16. INDICATIONS : Diffuse abdomen pain, nausea and vomiting for three weeks. IV CONTRAST: 86 cc Omnipaque 350 (iohexol) IV ORAL CONTRAST: No oral contrast ingested. RADIATION DOSE: 6.64 CTDIvol (mGy) MEDICAL HISTORY : Chronic obstructive pulmonary disease. Gastroesophageal reflux disease. SURGICAL HISTORY : endometrial ablation, bowel repair. ENCOUNTER: Initial ACUITY: 3 weeks PAIN SCALE: 6/10 LOCATION: Bilateral abdomen TECHNIQUE: Volumetric scanning of the abdomen and pelvis was performed. Using automated exposure control and ad justment of the mA and/or kV according to patient size, radiation dose was kept as low as reasonably achievable to obtain optimal diagnostic quality images. DICOM format image data is available electro nically for review and comparison. FINDINGS: LOWER LUNGS: The visualized lower lungs are clear. LIVER: Homogeneous density without lesion. There is no dilation of the biliary tree. No calcified gallston es. SPLEEN: Normal size without lesion. PANCREAS: Within normal limits. KIDNEYS: Normal in size and shape. There is no mass, stone or hydronephrosis. ADRENAL GLANDS: Within normal limits. VASCULAR: There is no aortic aneurysm. BOWEL/MESENTERY: The stomach, small bowel, and colon demonstrate no acute abnormality. There is no free intraperitone al air or fluid. ABDOMINAL WALL: Within normal limits. RETROPERITONEUM: There is no lymphadenopathy. BLADDER: No wall thickening or mass. REPRODUCTIVE: 3.1 severe cystic mass left adnexa region improved in the interval. INGUINAL: There is no lymphadenopathy or hernia. MUSCULOSKELETAL: Within normal limits for patient age. CONCLUSION: Interval improvement from comparison study There is no colitis Cystic mass persistent left adnexa region. Jf Benitez MD FACR on June 02, 2017 at 14:57 Board Certified Radiologist. This report was verified electronically.
[2017-06-02] MEDS ORDERED: REGL10TA5 PO (15:14)
[2017-06-02] MEDS ORDERED: TRAM50TA PO (15:14)
[2017-06-02 15:30] VITALS: BP 112/50
== END 2017-06-02 15:38 | disposition home or self-care (01) ==
LOC: NEPD 10:18
DX: K31.84 Gastroparesis (principal); J44.9 Chronic obstructive pulmonary disease, unspecified; F17.200 Nicotine dependence, unspecified, uncomplicated; F32.9 Major depressive disorder, single episode, unspecified; F43.10 Post-traumatic stress disorder, unspecified; K21.9 Gastro-esophageal reflux disease without esophagitis
CPT/HCPCS: 74177; 80053; 81001; 83690; 85025; 96374; 96375; 96376; 99284; J1170; J2765; J7030; Q9967

== ENCOUNTER 2018-03-04 10:39 | Inpatient (IN) ==
[2018-03-04] MEDS: KCL 20 mEq/D5W/NaCl 0.45% Inj 1,000 ML IV.SIG SCH ×2 (12:42→23:38)
[2018-03-04 12:48] LABS: Baso % (Auto) 0.3 % (0.0-2.0); Eos # (Auto) 0.1 th/mm3 (0.0-0.4); Eos % (Auto) 0.5 % (0.0-4.0); Hematocrit 38.7 % (35.0-46.0); Hemoglobin 13.4 gm/dL (11.6-15.3); Lymph # (Auto) 2.6 th/mm3 (1.0-4.8); Lymph % (Auto) 26.8 % (9.0-44.0); Mean Corpuscular HGB Conc 34.6 % (32.0-36.0); Mean Corpuscular Volume 95.5 fL (80.0-100.0); Mean Platelet Volume 7.4 fL (7.0-11.0); Mono # (Auto) 0.7 th/mm3 (0.0-0.9); Mono % (Auto) 7.6 % (0.0-8.0); Neut # (Auto) 6.2 th/mm3 (1.8-7.7); Neut % (Auto) 64.8 % (16.0-70.0); Platelet Count 225 th/mm3 (150-450); Red Blood Count 4.05 mil/mm3 (4.00-5.30); Red Cell Distribution Width 13.1 % (11.6-17.2); White Blood Count 9.5 th/mm3 (4.0-11.0)
[2018-03-04 12:54] LABS: Anion Gap 10 meq/L (5-15); Blood Urea Nitrogen 8 mg/dL (7-18); Calcium 8.6 mg/dL (8.5-10.1); Carbon Dioxide 23.1 meq/L (21.0-32.0); Chloride 104 meq/L (98-107); Glomerular Filtration Rate Greater Than 89 mL/min (>89); Glucose,Random 67 mg/dL (74-106); Potassium 3.8 meq/L (3.5-5.1); Sodium 137 meq/L (136-145)
[2018-03-04] MEDS ORDERED: Naloxone Inj 0.4 MG/ML Vial IV.PUSH PRN (15:24)
[2018-03-04] MEDS ORDERED: HYDROmorphone PF Inj 1 MG/ML Ampul IV.PUSH ONE (15:30)
[2018-03-04] MEDS: HYDROmorphone PCA Inj 6 MG/30 ML PCA.VIAL PCA PRN (16:10)
[2018-03-05] MEDS: HYDROmorphone PCA Inj 6 MG/30 ML PCA.VIAL PCA PRN ×3 (03:09→18:45)
[2018-03-05] MEDS: KCL 20 mEq/D5W/NaCl 0.45% Inj 1,000 ML IV.SIG SCH ×2 (09:40→18:44)
--- NOTE | 2018-03-05 15:41 | P.PNGS ---
Subjective Patient reports: still having pain, tolerating liquids well (Denies SOB palpitations or chest pain. No Nausea, pain moderately controlled with Dilaudid MACHINE TR[employer]MER. ), no flatus Physical Exam Vital signs: Vital Signs 03/04/18 16:14 03/04/18 16:20 03/04/18 16:59 Temperature 98.3 F Pulse Rate 86 Respiratory Rate 18 16 16 Blood Pressure 122/60 Pulse Oximetry 96 03/04/18 19:58 03/04/18 21:54 03/05/18 00:00 Temperature 98.4 F 97.9 F Pulse Rate 91 H 90 Respiratory Rate 16 16 16 Blood Pressure 122/61 115/62 Pulse Oximetry 94 L 96 03/05/18 03:42 03/05/18 04:27 03/05/18 07:45 Temperature 98.2 F 98.0 F Pulse Rate 80 82 Respiratory Rate 16 16 16 Blood Pressure 107/66 108/65 Pulse Oximetry 96 96 03/05/18 09:38 03/05/18 11:39 Temperature 97.7 F Pulse Rate 71 Respiratory Rate 18 16 Blood Pressure 105/60 Pulse Oximetry 96 Intake & Output 03/04/18 03/05/18 03/05/18 18:59 06:59 18:59 Intake Total 1000 / 1000 1000 / 1000 Balance 1000 / 1000 1000 / 1000 Weight 54.431 kg 60.7 kg Intake: IV 1000 / 1000 1000 / 1000 D5W/1/2NS + KCL 20 mEq Inj 1, 1000 / 1000 1000 / 1000 000 ML @ 100 mls/hr IV.SIG . Q10H [facility] Rx#:[id number] Other: # Voids 3 Weight On Admission 54.431 kg - Constitutional no acute distress - Routine Neck Exam Present: supple - Routine Respiratory Exam Present: crackles Comments: bibasilar fine inspiratory crackles. - Routine Cardiovascular Exam Present: RRR, S1, S2 - Routine Abdominal Exam Present: soft Comments: Guarding epigastric and umbilical area, normal post operative pain. laproscopic sites CDI, bowel sounds present. Results - Labs 03/04/18 12:12 03/04/18 12:12 Assessment and Plan - Assessment (1) Gastroparesis Code(s): K31.84 - Gastroparesis Status: Acute Plan: Restart home medications. Tolerating pureed diet, advance to regular Continue IVF if tolerating regular diet well will D/C (2) S/P repair of ventral hernia Code(s): Z98.890 - Other specified postprocedural states; Z87.19 - Personal history of other diseases of the digestive system Status: Acute Plan: Pain consistent with ventral hernia repair and placement of mesh. Continue Dilaudid MACHINE TRIMMER for now and while transitioning to IVP and oral pain medication. (3) COPD (chronic obstructive pulmonary disease) Code(s): J44.9 - Chronic obstructive pulmonary disease, unspecified Status: Acute Plan: stable. - Plan POD #3 outpatient laproscopic hernia repair. Admitted for suspect ileus and pain Last flatus 48 hours ago Start MOM and miralax. Frequent ambulation. Code Status: full Discussed Condition With: patient
[2018-03-05] MEDS ORDERED: AMITIZA 8 MCG PO SCH (21:00)
[2018-03-06] MEDS: KCL 20 mEq/D5W/NaCl 0.45% Inj 1,000 ML IV.SIG SCH ×3 (03:59→23:10)
[2018-03-06] MEDS: HYDROmorphone PCA Inj 6 MG/30 ML PCA.VIAL PCA PRN (06:46)
[2018-03-06] MEDS: Polyethylene Glycol 3350 17 GM Packet PO SCH (09:24)
[2018-03-06] MEDS: Morphine Sulfate Inj 2 MG/ML Vial IV.PUSH PRN ×3 (09:58→22:18)
--- NOTE | 2018-03-06 15:45 | P.PNGS ---
Subjective Patient reports: still having pain, tolerating a regular diet, flatus, no bowel movement (no chest pain, sob or palpitations.) Physical Exam Vital signs: Vital Signs 03/05/18 16:00 03/05/18 20:00 03/06/18 00:00 Temperature 97.8 F 97.2 F L 97.7 F Pulse Rate 77 73 74 Respiratory Rate 16 18 18 Blood Pressure 110/59 L 111/58 L 122/60 Pulse Oximetry 97 97 97 03/06/18 04:00 03/06/18 08:00 03/06/18 10:00 Temperature 97.7 F 97.6 F Pulse Rate 75 82 Respiratory Rate 18 18 18 Blood Pressure 104/63 118/59 L Pulse Oximetry 96 97 03/06/18 11:15 03/06/18 11:16 03/06/18 12:00 Temperature 97.8 F Pulse Rate 83 Respiratory Rate 18 18 18 Blood Pressure 105/55 L Pulse Oximetry 96 Intake & Output 03/05/18 03/06/18 03/06/18 18:59 06:59 18:59 Intake Total 1999 1480 / 1480 1000 / 1000 Balance 1999 1480 / 1480 1000 / 1000 Weight 60.7 kg Intake: IV 1999 1000 / 1000 1000 / 1000 D5W/1/2NS + KCL 20 mEq Inj , 1999 1000 / 1000 1000 / 1000 000 ML @ 100 mls/hr IV.SIG . Q10H [facility] Rx#:[id number] Oral 480 / 480 Other: # Voids 8 - Constitutional no acute distress - Routine Neck Exam Present: supple - Routine Respiratory Exam Present: CTA bilaterally - Routine Cardiovascular Exam Present: RRR, S1, S2 - Routine Abdominal Exam Present: soft Comments: mildly distended, pain improved from previous exam, Soft, laproscopic sites CDI , bowel sounds + Results - Labs 03/04/18 12:12 03/04/18 12:12 Assessment and Plan - Assessment (1) Gastroparesis Code(s): K31.84 - Gastroparesis Status: Acute Plan: Continue regular diet. Continue miralax and MOM Continue IVF if tolerating regular diet well will D/C (2) S/P repair of ventral hernia Code(s): Z98.890 - Other specified postprocedural states; Z87.19 - Personal history of other diseases of the digestive system Status: Acute Plan: Pain consistent with ventral hernia repair and placement of mesh. D/C ROAD [employer] start oral pain medication with IVP for breakthrough pain. (3) COPD (chronic obstructive pulmonary disease) Code(s): J44.9 - Chronic obstructive pulmonary disease, unspecified Status: Acute Plan: stable. - Plan POD #4 outpatient laproscopic hernia repair. Admitted for suspect ileus and pain +flatus await BM Frequent ambulation. Code Status: full Discussed Condition With: patient
[2018-03-07] MEDS: KCL 20 mEq/D5W/NaCl 0.45% Inj 1,000 ML IV.SIG SCH ×2 (00:42→11:36)
[2018-03-07] MEDS: Morphine Sulfate Inj 2 MG/ML Vial IV.PUSH PRN ×2 (04:14→10:12)
[2018-03-07 08:10] VITALS: BP 107/58; PULSE 78; RESP 20; TEMP 97.5; O2SAT 97
[2018-03-07] MEDS: Polyethylene Glycol 3350 17 GM Packet PO SCH (08:29)
--- NOTE | 2018-03-07 11:02 | P.PNGS ---
Subjective Interval history: She had multiple bowel movts and is tolerating some solid diet. Pain is improved with only occasional IV meds. She would like to go home. Physical Exam Vital signs: Vital Signs 03/06/18 11:15 03/06/18 11:16 03/06/18 12:00 Temperature 97.8 F Pulse Rate 83 Respiratory Rate 18 18 18 Blood Pressure 105/55 L Pulse Oximetry 96 03/06/18 15:25 03/06/18 16:00 03/06/18 16:12 Temperature 97.8 F Pulse Rate 84 Respiratory Rate 18 18 Blood Pressure 110/58 L Pulse Oximetry 98 03/06/18 20:00 03/07/18 00:00 03/07/18 08:00 Temperature 97.7 F 97.9 F 97.5 F L Pulse Rate 86 75 78 Respiratory Rate 17 18 20 Blood Pressure 107/64 92/50 L 107/58 L Pulse Oximetry 97 92 L 97 Intake & Output 03/06/18 03/07/18 03/07/18 18:59 06:59 18:59 Intake Total 2800 / 2800 1500 / 1500 240 / 240 Output Total Balance 2800 / 2800 1500 / 1500 239 / 239 Weight 59.3 kg Intake: IV 1000 / 1000 1000 / 1000 D5W/1/2NS + KCL 20 mEq Inj 1, 1000 / 1000 1000 / 1000 000 ML @ 100 mls/hr IV.SIG . Q10H [facility] Rx#:[id number] Oral 1800 / 1800 500 / 500 240 / 240 Output: Urine Other: # Voids 5 6 Date of Last Bowel Movement 03/06/18 # Bowel Movements 3 Narrative: NAD Abd: soft, inc c/d/i, binder in place Results - Labs 03/04/18 12:12 03/04/18 12:12 Assessment and Plan - Assessment (1) Gastroparesis Code(s): K31.84 - Gastroparesis Status: Acute Plan: Continue regular diet. Continue miralax and MOM Continue IVF if tolerating regular diet well will D/C (2) S/P repair of ventral hernia Code(s): Z98.890 - Other specified postprocedural states; Z87.19 - Personal history of other diseases of the digestive system Status: Acute Plan: Pain consistent with ventral hernia repair and placement of mesh. D/C [place] [employer] [place] start oral pain medication with IVP for breakthrough pain. (3) COPD (chronic obstructive pulmonary disease) Code(s): J44.9 - Chronic obstructive pulmonary disease, unspecified Status: Acute Plan: stable. - Plan Doing well at this point and ready for dc home now that ileus has resolved and pain improved- has pain medication at home already and will continue that and f/ u with Dr. Lewis on Friday.
== END 2018-03-07 11:58 | disposition home or self-care (01) ==
LOC: NEPGCP 10:54 → N07 03-05 10:26
PROVIDERS: ADMIT Surgery; ATTEND Surgery